=== PATIENT | female | born 1980 | race Caucasian/White ===

== ENCOUNTER → 2017-01-01 | Outpatient (CLI) | payer BC ==
[~2017-01-01] MED LIST: COLACE100 MG PO; PRENATAL1 TA1 PO; PROTONIX 40MG T40 MG PO
== END ==
LOC: BHSO 10:53
DX: F33.1 Major depressive disorder, recurrent, moderate (principal)
CPT/HCPCS: 90791-AI

== ENCOUNTER → 2017-02-01 | Outpatient (CLI) | payer BC | LOC: BHSO 09:39 | DX: F33.1 Major depressive disorder, recurrent, moderate (principal) ==

== ENCOUNTER → 2017-03-29 | Outpatient (CLI) | payer BC | LOC: BHSO 10:18 | DX: F41.1 Generalized anxiety disorder (principal) ==

== ENCOUNTER → 2017-05-15 | Outpatient (CLI) | payer BC | LOC: BHSO 11:35 | DX: F41.1 Generalized anxiety disorder (principal) ==

== ENCOUNTER → 2017-06-14 | Outpatient (CLI) | payer BC | LOC: BHSO 09:02 | DX: F41.1 Generalized anxiety disorder (principal) | CPT/HCPCS: G0463 ==

== ENCOUNTER → 2017-07-16 | Outpatient (CLI) | payer BC | LOC: BHSO 11:21 | DX: F41.1 Generalized anxiety disorder (principal) | CPT/HCPCS: G0463 ==

== ENCOUNTER → 2020-02-27 | Outpatient (CLI) | payer BC | LOC: ZCOL.LAB 16:41 | DX: Z20.828 Contact with and (suspected) exposure to other viral communicable diseases (principal) ==

== ENCOUNTER → 2020-09-28 | Outpatient (CLI) | payer BC | LOC: MC.RAD 10:57 | DX: Z12.31 Encounter for screening mammogram for malignant neoplasm of breast (principal); R92.2 Inconclusive mammogram; N63.21 Unspecified lump in the left breast, upper outer quadrant ==

== ENCOUNTER → 2020-09-30 | Outpatient (CLI) | payer BC | LOC: MC.RAD 07:42 | DX: N63.21 Unspecified lump in the left breast, upper outer quadrant (principal) ==

== ENCOUNTER → 2020-10-12 | Outpatient (CLI) | payer BC | LOC: MC.RAD 10:02 | DX: N63.20 Unspecified lump in the left breast, unspecified quadrant (principal); K59.09 Other constipation | CPT/HCPCS: 30634 ==